=== PATIENT | female | born 1970 | race Caucasian/White ===

== ENCOUNTER 2019-04-28 14:30 | Emergency (ER) | payer OTHER ==
[2019-04-28 14:49] VITALS: BP 122/69; PULSE 85; TEMP 98.6; BMI 24.5
--- NOTE | 2019-04-28 15:42 | PDOC ---
History of Present Illness - General Chief Complaint: Respiratory Stated Complaint: COUGH & COLD SX Time Seen by Provider: 04/28/19 14:52 - History of Present Illness Initial Comments: 04/28/19 15:39 48 F with h/o Apert's syndrome presenting to ED with 4 days of cough and malaise. Pt reports dry, nonproductive cough associated with chest soreness. Denies any active chest pain or shortness of breath. Denies fevers but endorses occasional chills. Denies N/V/D/abdominal pain. Pt notes that she has had several sick contacts at home. Past History - Past Medical History Allergies/Adverse Reactions: Allergies Allergy/AdvReac Type Severity Reaction Status Date / Time Penicillins Allergy Verified 04/28/19 14:33 Home Medications: Ambulatory Orders Fluoxetine HCl [Prozac] mg PO DAILY 04/28/19 COPD: No Psychiatric Problems: Yes (depression) - Psycho Social/Smoking Cessation Hx Smoking History: Never smoked Have you smoked in the past 12 months: No Information on smoking cessation initiated: No Hx Alcohol Use: No Review of Systems - Review of Systems Comments:: 04/28/19 15:40 GENERAL/CONSTITUTIONAL: + chills, No fever. No weakness. HEAD, EYES, EARS, NOSE AND THROAT: No change in vision. No ear pain or discharge. No sore throat. CARDIOVASCULAR: No chest pain, no shortness of breath, no loss of consciousness RESPIRATORY: + cough, no wheezing, or hemoptysis. GASTROINTESTINAL: No nausea, vomiting, diarrhea or constipation. GENITOURINARY: No dysuria, frequency, or change in urination. MUSCULOSKELETAL: No joint or muscle swelling or pain. No neck or back pain. SKIN: No rash NEUROLOGIC: No vertigo, no change in strength/sensation. ENDOCRINE: No increased thirst. No abnormal weight change. HEMATOLOGIC/LYMPHATIC: No anemia, easy bleeding, or history of blood clots. ALLERGIC/IMMUNOLOGIC: No hives or skin allergy. *Physical Exam - Vital Signs Last Vital Signs Temp Pulse Resp BP Pulse Ox 98.6 F 85 18 122/69 100 04/28/19 14:30 04/28/19 14:30 04/28/19 14:30 04/28/19 14:30 04/28/19 14:30 - Physical Exam 04/28/19 15:40 "GENERAL: Awake, alert, and fully oriented, in no acute distress. HEAD: No signs of trauma EYES: PERRLA, EOMI, sclera anicteric, conjunctiva clear ENT: Auricles normal inspection, hearing grossly normal, nares patent, oropharynx clear without exudates. Moist mucosa NECK: Nontender, no stepoffs, Normal ROM, supple, no lymphadenopathy, JVD, or masses LUNGS: Breath sounds equal, clear to auscultation bilaterally. No wheezes, and no crackles HEART: Regular rate and rhythm, normal S1 and S2, no murmurs, rubs or gallops ABDOMEN: Soft, nontender, normoactive bowel sounds. No guarding, no rebound. No masses EXTREMITIES: Normal range of motion, no edema. No clubbing or cyanosis. No cords, erythema, or tenderness NEUROLOGICAL: Cranial nerves II through XII intact. 5/5 strength and sensation in all extremities, Normal speech, normal gait, normal cerebellar function SKIN: Warm, Dry, normal turgor, no rashes or lesions noted. Medical Decision Making - Medical Decision Making 04/28/19 15:40 48 F with cough x 4 days. Normal vitals and exam. Likely viral URI. - Supportive care Pt is well appearing, with normal vitals. Clinically stable for DC at this time. I discussed the physical exam findings, ancillary test results and final diagnoses with the patient. I answered all of the patient's questions. The patient was satisfied with the care received and felt comfortable with the discharge plan and treatment plan. The patient agrees to follow up with the primary care physician within 24-72 hours. Discharge - Discharge Information Problems reviewed: Yes Clinical Impression/Diagnosis: Cough Condition: Stable Disposition: HOME - Follow up/Referral - Patient Discharge Instructions Patient Printed Discharge Instructions: DI for Viral Upper Respiratory Infection -- Adult Additional Instructions: You likely have a viral infection. Drink plenty of fluids and get lots of rest. If you experience worsening cough, high fevers or fevers lasting more than 4 days, chest pain, shortness of breath, or any other concerning symptoms, return to the ER immediately. Otherwise, follow up with your primary doctor within 48 hours. - Post Discharge Activity
== END 2019-04-28 16:05 | disposition home or self-care (01) ==
LOC: FER 14:30
DX: R05 Cough (principal); F32.9 Major depressive disorder, single episode, unspecified; Z88.0 Allergy status to penicillin; Q87.0 Congenital malformation syndromes predominantly affecting facial appearance
CPT/HCPCS: 99282-25

== ENCOUNTER 2019-12-25 15:49 | Emergency (ER) | payer OTHER ==
--- NOTE | 2019-12-25 15:57 | PDOC ---
History of Present Illness - General Chief Complaint: Psychiatric Stated Complaint: PANIC ATTACK RESOLVED Time Seen by Provider: 12/25/19 15:57 - History of Present Illness Initial Comments: HPI: 49yo F with PMH of Apert's syndrome, depression, bipolar disorder BIBEMS for chest pain. Patient resides in an adult skilled nursing. Reports she was watching a movie at her computer about an hour prior to arrival when she felt chest "hea viness" that was gradually worsened to 9/10. The pain radiated to her back and down to her abdomen and there was no associated nausea, vomiting, or diaphoresis. Patient alerted management at her skilled nursing who called for an ambulance. Once patient was outside, she started to feel better and now feels fine. Reports a history of panic attacks, but this episode did not feel like that. Mother of an IN at age 79. Patient is a nonsmoker and has never seen a part time. No fevers or chills. ROS: Constitutional: no fever, no chills HEENT: no throat pain, no dysphagia Cardiovascular: +chest pain, no palpitations Respiratory: no cough, no shortness of breath Gastrointestinal: no abdominal pain, no nausea Genitourinary: no dysuria, no hematuria Musculoskeletal: no myalgia, no arthralgia Skin: no rash, no itching Neurologic: no headache, no weakness Psych: no agitation, no anxiety PE: General: Awake, alert, and fully oriented, in no acute distress Head: No signs of trauma; cranial deformity noted Eyes: EOMI, sclera anicteric ENT: Moist mucus membranes Neck: Normal ROM, supple Lungs: Lungs clear, Normal breath sounds Cardio: Regular rhythm, S1 and S2 present Abdomen: Soft, nontender. No guarding, no rebound, no masses. Syndactyly present Extremities: Normal range of motion, Distal pulses present, no calf tenderness Skin: Warm, Dry, normal turgor Neurologic: Cranial nerves II through XII grossly intact. Normal speech ED Course/MDM: DDX including but not limited to ACS, PNA, PE, anemia, metabolic derangement, panic attack Labs, EKG, CXR 12/25/19 15:57 EKG: rate 62, Qtc 436, NSR, isolated flattened t wave on V2 with no prior ekg's for comparison CBC WBC 6.0 K/mm3 (4.0-10.8) 12/25/19 16:45 RBC 3.76 M/mm3 (3.60-5.2) 12/25/19 16:45 Hgb 10.7 GM/dl (10.7-15.3) 12/25/19 16:45 Hct 33.1 % (32.4-45.2) 12/25/19 16:45 MCV 88.1 fl (80-96) 12/25/19 16:45 MCH 28.5 pg (25.7-33.7) 12/25/19 16:45 MCHC 32.3 g/dl (32.0-36.0) 12/25/19 16:45 RDW 15.9 % (11.6-15.6) H 12/25/19 16:45 Plt Count 288 K/MM3 (134-434) 12/25/19 16:45 MPV 9.1 fl (7.5-11.1) 12/25/19 16:45 Absolute Neuts (auto) 3.5 K/mm3 12/25/19 16:45 Neutrophils % 59.0 % (42.8-82.8) 12/25/19 16:45 Lymphocytes % 31.6 % (8-40) 12/25/19 16:45 Monocytes % 6.9 % (3.8-10.2) 12/25/19 16:45 Eosinophils % 1.3 % (0-4.5) 12/25/19 16:45 Basophils % 1.2 % (0-2.0) 12/25/19 16:45 No leukocytosis or anemia CMP Sodium 139 mmol/L (136-145) 12/25/19 16:37 Potassium 4.5 mmol/L (3.5-5.1) 12/25/19 16:37 Chloride 114 mmol/L (98-107) H 12/25/19 16:37 Carbon Dioxide 21 mmol/L (21-32) 12/25/19 16:37 Anion Gap 4 MMOL/L (8-16) L 12/25/19 16:37 BUN 11.0 mg/dl (7-18) 12/25/19 16:37 Creatinine 0.6 mg/dl (0.55-1.3) 12/25/19 16:37 Est GFR (CKD-EPI)AfAm 124.05 12/25/19 16:37 Est GFR (CKD-EPI)NonAf 107.03 12/25/19 16:37 Random Glucose 91 mg/dl (74-106) 12/25/19 16:37 Calcium 9.9 mg/dl (8.5-10) 12/25/19 16:37 Total Bilirubin 0.2 mg/dl (0.2-1) 12/25/19 16:37 AST 18 U/L (15-37) 12/25/19 16:37 ALT 13 U/L (13-61) 12/25/19 16:37 Alkaline Phosphatase 60 U/L (45-117) 12/25/19 16:37 Troponin I < 0.03 ng/ml (0.00-0.05) 12/25/19 16:37 Total Protein 6.4 g/dl (6.4-8.2) 12/25/19 16:37 Albumin 3.5 g/dl (3.4-5.0) 12/25/19 16:37 Electrolytes unremarkable Cr normal No transaminitis First tpn undetectable CXR as reported by radiology with no acute chest pathology Pending second troponin 12/25/19 18:55 Past History - Medical History Allergies/Adverse Reactions: Allergies Allergy/AdvReac Type Severity Reaction Status Date / Time Penicillins Allergy Intermediate Hives Verified 12/25/19 15:53 Home Medications: Ambulatory Orders Aripiprazole 2 mg PO DAILY 12/25/19 Fluoxetine HCl 20 mg PO DAILY 12/25/19 Fluoxetine HCl [Prozac] 40 mg PO DAILY 12/25/19 Quetiapine Fumarate [Seroquel -] 50 mg PO HS 12/25/19 clonazePAM [Klonopin -] 0.5 mg PO TID 12/25/19 COPD: No Psychiatric Problems: Yes (depression) - Psycho-Social/Smoking History Smoking History: Never smoked Have you smoked in the past 12 months: No ED Treatment Course - LABORATORY CBC & Chemistry Diagram: 12/25/19 16:45 12/25/19 16:37 Discharge - Discharge Information Problems reviewed: Yes Clinical Impression/Diagnosis: Chest pain Qualifiers: Chest pain type: unspecified Qualified Code(s): R07.9 - Chest pain, unspecified Condition: Stable Disposition: HOME - Follow up/Referral - Patient Discharge Instructions Patient Printed Discharge Instructions: DI for Atypical Chest Pain Additional Instructions: You came into the emergency department for chest pain. Blood work, EKG, and Xray did not indicate acute pathology. . Follow-up with your primary care physician within 72 hours to discuss this ED visit and to further evaluate your symptoms. Call and make an appointment. Your care is not complete until you do so. Also Immediate medical attention is required if: you pass out, have worsening chest pain, shortness of breath, severe headaches, changes in vision, focal numbness or weakness, any severe abdominal pain, any black tarry stool, or any new or concerning symptoms. If you think you are having an emergency, call for emergency medical services or present to the emergency department right away. - Post Discharge Activity Work/Back to School Note: My Personal Safety Plan
[2019-12-25 16:15] VITALS: BP 146/85; PULSE 64; TEMP 98.7; BMI 22.6
--- NOTE | 2019-12-25 16:22 | PDOC ---
Attending Attestation - Resident Resident Name: Marina Sandoval - ED Attending Attestation I have performed the following: I have examined & evaluated the patient, The case was reviewed & discussed with the resident, I agree w/resident's findings & plan, Exceptions are as noted - HPI HPI: 49 yo F history Apert's syndrome presents with "panic attack". She states that she has had panic attacks in the past, but this was different. It was not i ncited by any particular event, she was sitting down, was not stressed at the time. She states it was different from prior panic attacks in that she felt a pressure in her chest. She states she thinks it lasted 5-10 minutes, but cannot be sure. No chest pressure at present. She states her left shoulder is bothering her now. No changes with movement. Denies cp, SOB, leg swelling. - Physicial Exam PE: GENERAL: Awake, alert, and fully oriented, in no acute distress HEAD: No signs of trauma EYES: PERRLA, EOMI, sclera anicteric, conjunctiva clear ENT: Auricles normal inspection, hearing grossly normal, nares patent, oropharynx clear without exudates. Moist mucosa NECK: Normal ROM, supple, no lymphadenopathy, JVD, or masses LUNGS: Breath sounds equal, clear to auscultation bilaterally. No wheezes, and no crackles HEART: Regular rate and rhythm, normal S1 and S2, no murmurs, rubs or gallops ABDOMEN: Soft, nontender, normoactive bowel sounds. No guarding, no rebound. No masses. No pulsatile mass EXTREMITIES: Normal range of motion, no edema. No clubbing or cyanosis. No cords, erythema, or tenderness. +Syndactyly to B/L hands NEUROLOGICAL: Cranial nerves II through XII grossly intact. Normal speech, normal gait. Motor and sensation intact SKIN: Warm, dry, normal turgor, no rashes or lesions noted. - Medical Decision Making 12/25/19 16:32 Pt with episode of chest pressure just [employer], described as more intense and different than prior panic attacks. She c/o L shoulder discomfort at present. No numbness, weakness, SOB, cp. Given the change from prior panic attacks, will do a cardiac workup (also in light of family history of ME). If results normal, will DC home. 09/01/20 18:55 Second trop being drawn now (symptoms occurred just over 3 hours ago), if neg, DC back to care home. Will sign patient out to Dr. Davison at 7pm shift change. Discharge - Discharge Information Problems reviewed: Yes Clinical Impression/Diagnosis: Chest pain Qualifiers: Chest pain type: unspecified Qualified Code(s): R07.9 - Chest pain, unspecified Condition: Stable - Follow up/Referral - Patient Discharge Instructions Patient Printed Discharge Instructions: DI for Atypical Chest Pain Additional Instructions: You came into the emergency department for chest pain. Blood work, EKG, and Xray did not indicate acute pathology. . Follow-up with your primary care physician within 72 hours to discuss this ED visit and to further evaluate your symptoms. Call and make an appointment. Your care is not complete until you do so. Also Immediate medical attention is required if: you pass out, have worsening chest pain, shortness of breath, severe headaches, changes in vision, focal numbness or weakness, any severe abdominal pain, any black tarry stool, or any new or concerning symptoms. If you think you are having an emergency, call for emergency medical services or present to the emergency department right away. - Post Discharge Activity Work/Back to School Note: My Personal Safety Plan
[2019-12-25 16:58] LABS: BASO % 1.2 % (0-2.0); EOS % 1.3 % (0-4.5); HEMATOCRIT 33.1 % (32.4-45.2); HEMOGLOBIN 10.7 GM/dl (10.7-15.3); LYMPH % 31.6 % (8-40); MCH 28.5 pg (25.7-33.7); MCHC 32.3 g/dl (32.0-36.0); MEAN CELL VOLUME 88.1 fl (80-96); MEAN PLT VOLUME 9.1 fl (7.5-11.1); MONO % 6.9 % (3.8-10.2); PLATELET COUNT 288 K/MM3 (134-434); RBC 3.76 M/mm3 (3.60-5.2); RDW 15.9 % (11.6-15.6)
[2019-12-25 17:18] LABS: ALBUMIN 3.5 g/dl (3.4-5.0); BILIRUBIN,TOTAL 0.2 mg/dl (0.2-1); CALCIUM 9.9 mg/dl (8.5-10); CREATININE 0.6 mg/dl (0.55-1.3); POTASSIUM 4.5 mmol/L (3.5-5.1); TOT PROT 6.4 g/dl (6.4-8.2)
--- NOTE | 2019-12-25 19:47 | PDOC ---
*Physical Exam - Vital Signs Last Vital Signs Temp Pulse Resp BP Pulse Ox 98.7 F 64 16 146/85 100 12/25/19 15:52 12/25/19 15:52 12/25/19 15:52 12/25/19 15:52 12/25/19 15:52 ED Treatment Course - LABORATORY CBC & Chemistry Diagram: 12/25/19 16:45 12/25/19 16:37 - ADDITIONAL ORDERS Additional order review: Laboratory Results 12/25/19 12/25/19 12/25/19 18:49 16:37 16:37 Sodium 139 Potassium 4.5 Chloride 114 H Carbon Dioxide 21 Anion Gap 4 L BUN 11.0 Creatinine 0.6 Est GFR (CKD-EPI)AfAm 124.05 Est GFR (CKD-EPI)NonAf 107.03 Random Glucose 91 Calcium 9.9 Total Bilirubin 0.2 AST 18 ALT 13 Alkaline Phosphatase 60 Troponin I < 0.03 < 0.03 Total Protein 6.4 Albumin 3.5 12/25/19 16:45 RBC 3.76 MCV 88.1 MCHC 32.3 RDW 15.9 H MPV 9.1 Neutrophils % 59.0 Lymphocytes % 31.6 Monocytes % 6.9 Eosinophils % 1.3 Basophils % 1.2 ED Progress Note - Progress Note Progress Note: 12/25/19 19:41 Care this patient was transferred to [place] Dr. Mccallum at 1900 hrs. Patient is a 49-year-old female with history of anxiety with some chest tightness and discomfort in her chest. Patient has a second troponin pending if second troponin is negative patient will be discharged and follow-up with her primary care doctor. 12/25/19 19:47 Patient's second troponin was not measurable. Patient will be discharged and follow-up with her primary care doctor. Discharge - Discharge Information Problems reviewed: Yes Clinical Impression/Diagnosis: Chest pain Qualifiers: Chest pain type: unspecified Qualified Code(s): R07.9 - Chest pain, unspecified Condition: Stable - Admission No - Follow up/Referral - Patient Discharge Instructions Patient Printed Discharge Instructions: DI for Atypical Chest Pain Additional Instructions: You came into the emergency department for chest pain. Blood work, EKG, and Xray did not indicate acute pathology. . Follow-up with your primary care physician within 72 hours to discuss this ED visit and to further evaluate your symptoms. Call and make an appointment. Your care is not complete until you do so. Also Immediate medical attention is required if: you pass out, have worsening chest pain, shortness of breath, severe headaches, changes in vision, focal numbness or weakness, any severe abdominal pain, any black tarry stool, or any new or concerning symptoms. If you think you are having an emergency, call for emergency medical services or present to the emergency department right away. - Post Discharge Activity Work/Back to School Note: My Personal Safety Plan
--- NOTE | 2019-12-26 09:24 | EKG ---
Test Reason : Blood Pressure : / mmHG Vent. Rate : 062 BPM Atrial Rate : 062 BPM P-R Int : 158 ms QRS Dur : 102 ms QT Int : 430 ms P-R-T Axes : 003 010 028 degrees QTc Int : 436 ms NORMAL SINUS RHYTHM LATERAL INFARCT ABNORMAL ECG NO PREVIOUS ECGS AVAILABLE Confirmed by MD OLAF, LISA ([id number]) on 12/26/2019 9:23:29 AM Referred By: DR MATTHEWS Confirmed By:LISA BABIN MD
== END 2019-12-25 19:53 | disposition home or self-care (01) ==
LOC: FER 15:49
DX: R07.9 Chest pain, unspecified (principal)
CPT/HCPCS: 36415; 71045-TC-FY; 80053; 84484; 85025; 93005; 99284-25